=== PATIENT | male | born 1970 | race African-American/Black ===

== ENCOUNTER 2023-07-10 07:45 | Day surgery (SDC) | payer MEDICAID ==
[2023-07-08 11:56] LABS: INR 1.04 (0.9-1.15); Partial Thromboplastin Time 26.5 SEC (24.5-34.5); Prothrombin Time 10.9 sec (9.3-11.8)
[2023-07-08 11:59] LABS: Urine Bacteria NONE SEEN /hpf (None Seen); Urine Blood Negative /uL (Negative); Urine Clarity Clear (Clear); Urine Color Yellow (Yellow); Urine Protein, UAD Negative (Negative); Urine Specific Gravity 1.024 (1.001-1.035); Urine WBC <1 /hpf (0 - 3)
[2023-07-08 12:21] LABS: Calcium 8.9 mg/dL (8.5-10.1); Potassium 5.1 mmol/L (3.5-5.1)
[2023-07-08 12:24] LABS: BUN/Creatinine Ratio 13.3 (10.0-20.0); Bilirubin, Total 0.1 mg/dL (0.2-1.0); Total Protein 7.2 g/dL (6.4-8.2)
[2023-07-08 12:51] LABS: Hematocrit 41.2 % (41.0-53.0); Hemoglobin 13.5 g/dL (13.5-17.5); Mean Corpuscular Hemoglobin 30.7 pg (28.0-32.0); Mean Corpuscular Hgb Conc. 32.7 g/dL (32.0-36.0); Mean Corpuscular Volume 93.9 fL (80.0-100.0); Red Blood Cells 4.39 10^6/uL (4.5-5.90); Red Cell Distribution Width 14.5 % (11.8-14.3); White Blood Cell 5.7 10^3/uL (4.4-10.8)
[2023-07-08 12:58] LABS: Basophils % (manual) 0 (0.0-2.0); Blast Cells 0; Eosinophils % (manual) 0 (0-7); Metamyelocytes % 0; Myelocytes % 0; Promyelocytes % 0
[2023-07-08 16:38] LABS: Anisocytosis Slight; Band Neutrophils % (manual) 2; Lymphocytes % (manual) 43 (10.0-50.0); Monocytes % (manual) 10 (0-12); Platelet Estimate Adequate; Reactive Lymphocytes 1; Stomatocytes Few
[~2023-07-10] VITALS: Ht 177.8 cm; Wt 117.5 kg
[~2023-07-10 07:45] MED LIST: ASPI81CH59 PO; BUPR-133 PO; BUPR-60 PO; CLON-853 PO; CLON0.2T PO; CLON0.5T3 PO; COR10OTS LEFT EAR; DIVA1TAB59 PO; FLUP10TA11 PO; METF-370 PO
[2023-07-10] MEDS ORDERED: GLYCOPYRROLATE 0.2 MG/ML 1ML VIAL ONE (08:11)
[2023-07-10] MEDS ORDERED: ONDANSETRON HCL 4 MG/2 ML VIAL ONE (08:11)
[2023-07-10] MEDS ORDERED: DexAMETHasone SOD PHOS 10MG/1ML VIAL INJ ONE (08:11)
[2023-07-10] MEDS ORDERED: LIDOCAINE 2% (LOCAL ANESTH.) PF 5ml SDV ONE (08:11)
[2023-07-10] MEDS ORDERED: PROPOFOL 10 MG/ML 20 ML IV ONE ×2 (08:12→09:16)
[2023-07-10] MEDS ORDERED: CIPROFLOXACIN 400MG/200ML 200 ML IV ONE (08:54)
[2023-07-10] MEDS ORDERED: KETOROLAC TROMETH 30 MG/ML 1ML VIAL ONE (08:58)
[2023-07-10] MEDS ORDERED: KETAMINE HCL 10 ML ONE (09:12)
[2023-07-10 09:34] VITALS: TEMP 97.8
[2023-07-10 10:20] VITALS: BP 134/90; PULSE 73; RESP 14; O2SAT 95
== END 2023-07-10 10:40 | disposition home or self-care (01) ==
LOC: SUR 07:45
PROVIDERS: ATTEND Urology
DX: N39.41 Urge incontinence (principal); R39.14 Feeling of incomplete bladder emptying; N47.1 Phimosis
CPT/HCPCS: 36415; 52000; 80053; 81001; 85007; 85027; 85610; 85730; 87086; J0744; J1100; J1885; J2001; J2405; J2704; J7030